=== PATIENT | female | born 1950 | race Caucasian/White ===

== ENCOUNTER 2018-05-30 12:10 | Emergency (ER) | payer MEDICARE ==
[2018-05-30 13:05] LABS: #Eosinphils 0.1 thou/uL (0.0-0.7); #Lymphocytes 1.8 thou/uL (1.20-3.40); #Monocytes 0.7 thou/uL (0.11-0.59); %Basophils 0.4 % (0.0-1.0); %Eosinophils 1.6 % (0.0-10.0); %Lymphocytes 27.3 % (21.0-51.0); %Monocytes 10.6 % (0.0-10.0); %Neutrophils 60.1 % (42.0-75.0); Mean Corpuscular HGB CONC 34.1 g/dL (32.0-36.0); Mean Corpuscular Hemoglobin 30.6 pg (27.0-31.0); Mean Corpuscular Volume 89.9 fL (78.0-98.0); Mean Platelet Volume 10.5 fL (7.4-10.4); Platelet Count 181 thou/uL (130-400); RBC Distribution Width 12.1 % (11.5-14.5); Red Blood Cell (RBC) Count 4.89 mill/uL (4.20-5.40); White Blood Cell (WBC) Count 6.7 thou/uL (4.8-10.8)
[2018-05-30] MEDS ORDERED: Ondansetron HCl/PF 4 MG/2 ML Vial ONE (13:12)
[2018-05-30 13:29] LABS: ALT (SGPT) 11 U/L (8-55); AST (SGOT) 23 U/L (5-34); Albumin 4.4 g/dL (3.4-4.8); Alkaline Phosphatase 79 U/L (40-150); Anion Gap 14 mmol/L (10-20); BUN (Urea Nitrogen) 21 mg/dL (9.8-20.1); Bilirubin, Total 1.3 mg/dL (0.2-1.2); Calc. Creatinine Clearance 0 mL/min (70-130); Calcium 9.5 mg/dL (7.8-10.44); Carbon Dioxide 24 mmol/L (23-31); Chloride 103 mmol/L (98-107); Estimated GFR-MDRD 49; Globulin 2.7 g/dL (2.4-3.5); Glucose 100 mg/dL (80-115); Lipase 32 U/L (8-78); Potassium 4.9 mmol/L (3.5-5.1); Protein, Total 7.1 g/dL (6.0-8.3); Sodium 136 mmol/L (136-145)
--- NOTE | 2018-05-30 13:33 | CT ---
CT OF THE ABDOMEN AND PELVIS WITHOUT IV CONTRAST: Date: 05/30/18 INDICATION: Right lower quadrant abdominal pain. FINDINGS: There is a 3.7 mm stone seen within the posterolateral aspect of the bladder near the right UVJ causi ng moderate right hydronephrosis. There are numerous stones involving both kidneys. The largest within the right kidney is seen within the superior pole measuring 1.0 cm. The largest within the left kidney measures 7.0 mm in inferior po le. There are calcified granuloma involving the spleen. Unopacified liver, pancreas, and adrenal glands a re unremarkable. No free fluid is evident. Rectal and perirectal soft tissues are unremarkable. No definite acute osseous abnormality is evident. IMPRESSION: 1. Moderate right hydronephrosis. There is a 3.7 mm stone involving the right UVJ that appears to be within the posterolateral aspect of the bladder. 2. Extensive bilateral nephrolithiasis. POS: [facility]
[2018-05-30] MEDS ORDERED: Ketorolac Tromethamine 30 MG/ML VIAL ONE (13:39)
[2018-05-30 15:01] LABS: Bilirubin Negative (Negative); Blood, Urine Negative (Negative); Clarity CLEAR (Clear); Glucose, Urine (Dipstick) Negative (Negative); Leukocyte Negative (Negative); Nitrite Negative (Negative); Protein, Urine (Dipstick) Negative (Neg-Trace); Specific Gravity, Urine 1.009 (1.002-1.036); Urobilinogen 0.2 mg/dL (0.2-1.0); pH, Urine 7.5 (5.0-9.0)
== END 2018-05-30 15:41 | disposition home or self-care (01) ==
LOC: ERS 12:10
DX: N13.2 Hydronephrosis with renal and ureteral calculous obstruction (principal); I10 Essential (primary) hypertension
CPT/HCPCS: 36415; 74176; 80053; 81003; 83690; 85025; 96361; 96374; 96375; 96376; J1885; J2270; J2405

== ENCOUNTER 2019-04-15 05:54 | Day surgery (SDC) | payer MEDICARE ==
[2019-04-14 14:46] VITALS: BMI 22.6
[2019-04-15 06:43] LABS: Platelet Count 202 thou/uL (130-400)
[2019-04-15] MEDS ORDERED: Iothalamate Meglumine 60% 50 ML VIAL FS ONE (06:44)
[2019-04-15 06:53] LABS: EPI 96 SEC (67-199)
[2019-04-15] MEDS ORDERED: Fentanyl 100 MCG/2 ML VIAL ONE (06:58)
[2019-04-15 07:06] LABS: INR-International Normal Ratio 0.9; PTT 27.2 SEC (22.9-36.1); Prothrombin Time 12.3 SEC (12.0-14.7)
--- NOTE | 2019-04-15 08:30 | RAD ---
KUB: Comparison: 04-09-19, CT of the abdomen, 04-14-19. History: Pre-operative examination. Kidney stones. FINDINGS: Single view of the abdomen shows a nonspecific, nonobstructed bowel gas pattern. Air is seen througho ut the colon from recent contrast examination. There is a left ureteral stent in good position. Calci fications are seen projecting over both kidneys. Largest calcification is seen on the right measuring 10 mm in size. IMPRESSION: Bilateral nephrolithiasis. POS: [facility]
--- NOTE | 2019-04-15 11:03 | OP ---
DATE OF PROCEDURE: 04/15/2019 PREOPERATIVE DIAGNOSIS: Left proximal ureteral stone, 7 mm. POSTOPERATIVE DIAGNOSIS: Left proximal ureteral stone, 7 mm. PROCEDURE PERFORMED: Left extracorporeal shock wave lithotripsy. ANESTHETIC: General. EBL: Not recorded. FINDINGS: There was a 7 mm proximal left ureteral stone treated with 2500 shocks at a maximum level of 5, it did appear to fragment well. She had a stent in place. We will leave that in for a few days and get a followup x-ray before removing the stent. DESCRIPTION OF PROCEDURE: Obtaining written and verbal consent from the patient, she was taken to the operative suite. She was placed in the supine position on the treatment table. PlexiPulses were placed on her lower extremities and turned on. She was given a general anesthetic and oral obturator intubation. She was coupled to the lithotripsy unit. The stone was placed in treatment focal point. Shockwave therapy was commenced. After 200 or 300 shocks, pause was given for a few minutes and then we recommenced the lithotripsy and brought it up to the level 4 and then to level 5. The rate was started at 60 went up to 80. Stone appeared to fragment well, but the fragments all stayed in place. We used all 2500 shocks on the stone and we were not able to treat any of the stones up in her kidney. The stone was at the level of the lower pole of the kidney, although it was in the proximal ureters at that same level. At the end of 2500 shocks, she was awakened and extubated and taken by stretcher to recovery room. Job ID: [id number]
== END 2019-04-15 10:20 | disposition home or self-care (01) ==
LOC: SDC 05:54
PROVIDERS: ATTEND Urology
PROC: 0TF7XZZ Fragmentation in Left Ureter, External Approach (ICD-10-PCS; principal; 2019-04-15)
DX: N20.1 Calculus of ureter (principal); I10 Essential (primary) hypertension; E03.9 Hypothyroidism, unspecified; Z88.0 Allergy status to penicillin
CPT/HCPCS: 74018; 85576; 85610; 85730; J3010; Q9961